=== PATIENT | male | born 1940 | race Caucasian/White ===

== ENCOUNTER 2017-03-29 08:00 | Observation (INO) | payer OTHER ==
--- NOTE | 2017-03-26 09:51 | CPEKG ---
Heart Rate: 60 RR Interval: 1000 P-R Interval: 152 QRSD Interval: 92 QT Interval: 456 QTC Interval: 456 P Astor: 24 QRS Astor: -27 T Wave Astor: 142 EKG Severity - ABNORMAL ECG - EKG Impression: SINUS RHYTHM EKG Impression: LVH WITH SECONDARY REPOLARIZATION ABNORMALITY EKG Impression: LVH IS MORE PRONOUNCED ON TODAY'S ECG COMPARED TO PRIOR Electronically Signed By: Eddie Ramirez 26-Mar-2017 16:25:33
--- NOTE | 2017-03-28 16:02 | GHP ---
[f rep st] PREOP HISTORY AND PHYSICAL DATE OF ADMISSION: 03/29/2017 ADMISSION DIAGNOSIS: Urinary retention from a flaccid bladder. HISTORY OF PRESENT ILLNESS: This is a gentleman who has had urinary retention. 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 He has had indwelling Kim catheter for urinary retention. A t the present time, he has elected to have a suprapubic catheter placed. PAST MEDICAL HISTORY: Elevated PSA, epididymal orchitis, hypertension, kidney stones. PAST SURGICAL HISTORY: Carpal tunnel, TURP, PVP. MEDICATIONS: Aspirin, Benadryl, calcium, vitamin D, fluconazole. PHYSICAL EXAMINATION: VITAL SIGNS: Stable. CHEST: Clear. HEART: Regular rate and rhythm. ABDOM EN: Normal. No organomegaly, rebound or guarding. LOWER EXTREMITIES: Normal. PLAN: He is admitted for suprapubic catheter placement. /[id number]/MODL
[~2017-03-29 08:00] MED LIST: VANCOMYCIN 1.5 GM in D5W 250 ML IV ONE; VANCOMYCIN PHARMACY TO DOSE MISC ONE
[2017-03-29] MEDS ORDERED: LIDOCAINE 1% 2 ML INJ ID PRN (08:26)
[2017-03-29] MEDS ORDERED: LR 1,000 ML IV ONE (08:26)
--- NOTE | 2017-03-29 09:25 | PDHPUP ---
History & Physical Update H&P update statement: This history and physical update is based on an assessment of the patient which was completed after admission or registration (within 24 hours), but prior to the surgery/procedure. H&P update: H&P reviewed & patient examined, no change in patient's condition since H&P completed
[2017-03-29] MEDS ORDERED: fentaNYL 100 MCG/2 ML INJ ONE (09:35)
--- NOTE | 2017-03-29 09:40 | PDANEPAE ---
ANE Past Medical History - Cardiovascular History Hx Hypertension: Yes Hx Arrhythmias: No Hx Coronary Artery / Peripheral Vascular Disease: Yes Hx CHF / Valvular Disease: No Hx Palpitations: No Cardiovascular History Comment: NO CP - Pulmonary History Hx COPD: No Hx Asthma/Reactive Airway Disease: No Hx Recent Upper Respiratory Infection: No Hx Oxygen in Use at Home: No Hx Sleep Apnea: No Sleep Apnea Screening Result - Last Documented: Positive Pulmonary History Comment: DENIES SOB W STAIRS - Neurologic History Hx Cerebrovascular Accident: No Hx Seizures: No Hx Dementia: No - Endocrine History Hx Diabetes: No - Renal History Hx Renal Disorders: Yes Renal History Comment: ENLARGED PROSTATE. BLADDER NECK CONTRACTURE. KIDNEY STONES IN KIDNEY. 1 KIDNEY SL ENLARGED- DYSFX. 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 AGE 5- NEEDLE PROC- LAST AGE 1 - GI History Hx Gastrointestinal Disorders: No - Other Health History Other Health History: BLIND - Chronic Pain History Chronic Pain: Yes (lower back) - Surgical History Prior Surgeries: turp ANE Review of Systems Review of Systems: - Exercise capacity METS (RN): 2 METS ANE Patient History - Allergies Allergies/Adverse Reactions: No Known Allergies Allergy (Verified 01/17/12 20:39) - Home Medications Home Medications: Acetaminophen [Tylenol ES 500 mg (*)] 1,000 mg PO DAILY PRN 06/25/13 [Last Taken 03/28/17 08:00] Acetamn/Diphenhydramine 500/25 [Tylenol PM (*)] 2 each PO HS 06/25/13 [Last Taken 03/28/17 20:00] Aspirin [Aspirin 325 mg (*)] 325 mg PO DAILY 06/25/13 [Last Taken 03/22/17] Lisinopril [Zestril 20 mg (*)] 20 mg PO DAILY 06/25/13 [Last Taken 03/29/17 06: 00] Lovastatin 10 mg PO DAILY 03/16/17 [Last Taken 03/27/17] Multivitamins [Multivitamin (*)] 1 each PO DAILY 03/16/17 [Last Taken 03/24/17] - NPO status NPO Since - Liquids (Date): 03/28/17 NPO Since - Liquids (Time): 00:00 NPO Since - Solids (Date): 03/28/17 NPO Since - Solids (Time): 19:00 - Smoking Hx Smoking Status: Never smoked - Family Anes Hx Family Hx Anesthesia Complications: NONE ANE Labs/Vital Signs - Vital Signs Blood Pressure: 121/72 Heart Rate: 58 Respiratory Rate: 16 O2 Sat (%): 94 Height: 182.88 cm Weight: 108.862 kg ANE Physical Exam - Airway Neck exam: decreased ROM, short neck Mallampati Score: Class 2 Mouth exam: poor dentition - Pulmonary Pulmonary: no respiratory distress, no rales or rhonchi, reduced air movement - Cardiovascular Cardiovascular: regular rate and rhythym, no murmur, rub, or gallop - ASA Status ASA Status: III ANE Anesthesia Plan Anesthesia Plan: general endotracheal anesthesia
[2017-03-29] MEDS ORDERED: LR 500 ML IV PRN (09:55)
[2017-03-29] MEDS ORDERED: DEXAMETHASONE 4 MG/ML VIAL IVP PRN (09:55)
[2017-03-29] MEDS ORDERED: fentaNYL 100 MCG/2 ML INJ IVP PRN (09:55)
[2017-03-29] MEDS ORDERED: NALOXONE HCL 0.4 MG/ML INJ IVP PRN (09:55)
[2017-03-29] MEDS ORDERED: ONDANSETRON 4 MG/2 ML VIAL IVP PRN ×2 (09:55→10:39)
[2017-03-29] MEDS ORDERED: ALBUTEROL 3 ML DEYVIAL IH PRN (09:55)
[2017-03-29] MEDS ORDERED: epHEDrine SULFATE 10 MG/ML SYR ONE ×2 (09:57→10:19)
[2017-03-29] MEDS ORDERED: LIDOCAINE 2% 5 ML SDV ONE (09:57)
[2017-03-29] MEDS ORDERED: ROCURONIUM 50 MG/5 ML VIAL ONE (09:57)
[2017-03-29] MEDS ORDERED: SUGAMMADEX SODIUM 200 MG/2 ML VIAL IVP ONE (09:57)
[2017-03-29] MEDS ORDERED: ONDANSETRON 4 MG/2 ML VIAL ONE (09:57)
[2017-03-29] MEDS ORDERED: oxyCODONE IR 5 MG TAB PO PRN (10:39)
[2017-03-29] MEDS ORDERED: ACETAMINOPHEN 325 MG TAB PO PRN (10:39)
[2017-03-29] MEDS ORDERED: ZOLPIDEM TARTRATE 5 MG TAB PO PRN (10:39)
[2017-03-29] MEDS ORDERED: ONDANSETRON DISINTEGRATING 4 MG TAB PO PRN (10:39)
[2017-03-29] MEDS ORDERED: NS 1,000 ML IV SCH (10:45)
--- NOTE | 2017-03-29 10:54 | POSTANESTH ---
Post Anesthetic Evaluation Cardiovascular Status: Normal, Stable Respiratory Status: Normal, Stable Level of Consciousness/Mental Status: Can Participate in Eval Pain Control: Adequate, Prn Tx Ordered Nausea/Vomiting Control: Adequate, Prn Tx Ordered Complications Possibly Related to Anesthesia: None Noted
--- NOTE | 2017-03-29 12:01 | GOP ---
[f rep st] OPERATIVE REPORT DATE OF OPERATION: 03/29/2017 SURGEON: Layton Farah MD PREOPERATIVE DIAGNOSIS: Urinary retention. POSTOPERATIVE DIAGNOSIS: Urinary retention and bladder calculi. PROCEDURE PERFORMED: Cystolitholapaxy of bladder stones and placement of suprapubic cystotomy cathet er. FINDINGS: DESCRIPTION OF PROCEDURE: The patient underwent general anesthesia. Prepped and draped in normal st erile fashion in dorsal lithotomy position. After appropriate time-out, he was prepped and draped in normal sterile fashion and then the cystoscopy revealed the urethra patent with no significant scarr ing. He had bladder stones that were evacuated with a grasper and an [employer] evacuator and then visual ization of bladder revealed no tumors or diverticula. Then, at that point, I filled his bladder so that it was well above his symphysis pubis palpably and then I was able to past the T-SPEC T14 transurethral suprapubic Endo-cystotomy device into the [facility] r and connected it so that the capture housing for the blade was through the abdomen into the device and then removed the scalpel blade, advanced the cable, and then attached the 18-Icelandic catheter to t he device. Brought it out through the urethra and then at that point followed the catheter back in t he bladder endoscopically. Filled the catheter balloon to 10 mL and then confirmed it was positioned appropriately and then it was secured in place with a 3-0 silk suture and irrigated and drained well . The patient tolerated the procedure well. He will be observed overnight postoperatively and I will d iscuss the findings with his family. /[id number]/MODL
[2017-03-29] MEDS ORDERED: diphenhydrAMINE 25 MG CAP PO PRN (14:34)
[2017-03-30 05:56] VITALS: RESP 16
--- NOTE | 2017-03-30 09:11 | GDS ---
[f rep st] DISCHARGE SUMMARY PREOP AND POSTOP DIAGNOSIS: Urinary retention preoperatively. Postoperatively was urinary retention with bladder calculi. HOSPITAL COURSE: The patient underwent a cystolitholapaxy bladder stone, placement of suprapubic cat heter. He underwent the procedure without difficulty. He is being discharged home in good condition with SP tube in place. He is to follow up in our office in 1 month. /[id number]/MODL
[2017-03-30] MEDS ORDERED: DOCUSATE SODIUM 100 MG CAP PO PRN (10:40)
--- NOTE | 2017-03-30 10:58 | ASMTCMCOM ---
CM Note CM Note Notes: Pt to DC today. PT/OT recommending home care. Pt has had [facility] in past and would like to use again. They were alerted. Referral faxed. SOC tomorrow 03/31. Date Signed: 03/30/2017 10:57 AM Electronically Signed By:Elly Chowdhury LCSW
[2017-03-30 11:16] VITALS: BP 129/64; PULSE 66; TEMP 98; O2SAT 92
--- NOTE | 2017-03-30 12:17 | PDIAF ---
- Diagnosis Code Status: Full Code - Medication Management Discharge Medications: Medications to Continue on Transfer Acetaminophen [Tylenol ES 500 mg (*)] 1,000 mg PO DAILY PRN 06/25/13 [Last Taken 03/28/17 08:00] Acetamn/Diphenhydramine 500/25 [Tylenol PM (*)] 2 each PO HS 06/25/13 [Last Taken 03/28/17 20:00] Aspirin [Aspirin 325 mg (*)] 325 mg PO DAILY 06/25/13 [Last Taken 03/22/17] Lisinopril [Zestril 20 mg (*)] 20 mg PO DAILY 06/25/13 [Last Taken 03/29/17 06: 00] Lovastatin 10 mg PO DAILY 03/16/17 [Last Taken 03/27/17] Multivitamins [Multivitamin (*)] 1 each PO DAILY 03/16/17 [Last Taken 03/24/17] Discharge Medications: Refer to the Discharge Home Medication list for PRN reason. - Orders Services needed: Physical Therapy, Occupational Therapy Diet Texture: Regular Texture Diet - Follow Up Care Current Providers and Referrals: Winston Silverio MD [Primary Care Provider] - Layton Farah MD [Medical Doctor] -
--- NOTE | 2017-03-30 14:47 | ASMTCMCOM ---
CM Note CM Note Notes: Pt will be staying with dtr for one night at [place]. Asked [facility] to call dtr Mana at [phone] so that she can bring back home for appt. Pt's [address] address is [address] in [place]. Pt is blind and dtr says PT/OT is for balance and gait instability. Otherwise he lives alone but knows how to get around. Dtr is an RN and can help with his catheter. Date Signed: 03/30/2017 02:46 PM Electronically Signed By:Elly Chowdhury LCSW
--- NOTE | 2017-03-30 14:50 | ASDISCHSUM ---
Discharge Information Plan Status:Home with Home Health Medically Cleared to Leave: Discharge Date:03/30/2017 12:15 PM CM D/C Disposition:Home Health Service ADT D/C Disposition:Home Health Service Projected Discharge Date:03/30/2017 11:00 AM Transportation at D/C: Discharge Delay Reason: Follow-Up Date:03/30/2017 11:00 AM Discharge Slot: Final Diagnosis: Placement Information Referral Type:*Home Health Care Services Referral ID:[id number] Provider Name:[facility] Address 1:[address] [place] [address] Address 2: City:[place] Selection Factors: State:[place] Patient Contact Information Contact Name:JACKIE Relationship:Daughter Address: City: [facility] Phone: State/Zip Code:[place] Email: Financial Information Financial Class:Medicare Advantage Plans Primary Plan Desc:MIGNON [employer]ARCIA PPO MEDICARE Primary Plan Number:[id number] Secondary Plan Desc: Secondary Plan Number: Assessment Information [facility] CM Progress Note CM Note CM Note Notes: Pt to DC today. PT/OT recommending home care. Pt has had [facility] in past and would like to use again. They were alerted. Referral faxed. SOC tomorrow 03/31. Date Signed: 03/30/2017 10:57 AM Electronically Signed By:Elly Chowdhury LCSW [facility] CM Progress Note CM Note CM Note Notes: Pt will be staying with dtr for one night at [place]. Asked [facility] to call dtdania Adair at [phone] so that she can bring back home for appt. Pt's street address is [address] in [place]. Pt is blind and dtr says PT/OT is for balance and gait instability. Otherwise he lives alone but knows how to get around. Dtr is an RN and can help with his catheter. Date Signed: 03/30/2017 02:46 PM Electronically Signed By:Elly Chowdhury LCSW Intervention Information Intervention Type:*BRAD-Signed Date of Service:03/29/2017 03:16 PM Patient Type:Observation Staff Member:Azul Hoff Hours: Discipline: Severity: Comment:
== END 2017-03-30 12:15 | disposition home health service (06) ==
LOC: F1N 08:00
PROVIDERS: ADMIT Specialist; ATTEND Specialist
DX: R33.9 Retention of urine, unspecified (principal); N21.0 Calculus in bladder; Z87.442 Personal history of urinary calculi
CPT/HCPCS: 51045; 52310; 93005; 97116; 97161; 97165; 97530; 97535; C2627; G0378; J2405; J3010; J3370; 82365-90

== ENCOUNTER 2018-05-24 12:15 | Inpatient (IN) | payer OTHER ==
[2018-05-24 12:35] LABS: PLATELET COUNT 230 10^3/uL (150-400)
[2018-05-24] MEDS ORDERED: LACTATED RINGERS IV ONE (13:08)
--- NOTE | 2018-05-24 13:14 | EDPHY ---
H & P Stated Complaint: ? uti Time Seen by Provider: 05/24/18 13:01 HPI/ROS: CHIEF COMPLAINT: Generalized weakness, fall, confusion HISTORY OF PRESENT ILLNESS: Patient is a 77-year-old man with history of hypertension and BPH and spinal stenosis with neurogenic bladder and suprapubic catheter. Family reports that he has had diarrhea for the last 2 weeks but it got better yesterday after Imodium. He felt increasingly fatigued last night and fell down. He called fire department who helped him back up. He had a bruise to his elbow but no other injuries. He is not on blood thinners. He denies head injury or neck injury. He then went to bed and slid out of bed onto the ground. His family reports that he did not want to call the fire department so he laid on the ground all night and called them this morning. They brought him here. Family reports that he has had similar episodes in the past that have been the result of urinary tract infections. His daughter states that his urine smells foul compared to normal. He has not been on antibiotics in the last several months. He has not been hospitalized for about 3 years. 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 Severity: Moderate Modifying factors: None REVIEW OF SYSTEMS: Constitutional: See HPI, no fevers EENTM: denies: blurred vision, double vision, nose congestion Respiratory: denies: cough, shortness of breath Cardiac: denies: chest pain, irregular heart rate, lightheadedness, palpitations Gastrointestinal/Abdominal: denies: abdominal pain, diarrhea, nausea, vomiting, blood streaked stools Genitourinary: See HPI Musculoskeletal: denies: joint pain, muscle pain Skin: denies: lesions, rash, jaundice, bruising Neurological: denies: headache, numbness, paresthesia, tingling, dizziness, weakness Hematologic/Lymphatic: denies: blood clots, easy bleeding, easy bruising Immunologic/allergic: denies: HIV/AIDS, transplant 10 systems reviewed and negative except as noted EXAM: GENERAL: Ofwy-ag-jabzkmi, blind, answers most questions appropriately HEAD: Atraumatic, normocephalic. EYES: Blind ENT: TMs normal, nares patent, oropharynx clear without exudates. Moist mucous membranes. NECK: Normal range of motion, supple without lymphadenopathy or JVD. LUNGS: Breath sounds clear to auscultation bilaterally and equal. No wheezes rales or rhonchi. HEART: Regular rate and rhythm without murmurs, rubs or gallops. ABDOMEN: Suprapubic catheter in place, no leaking or bleeding. Soft, nontender , normoactive bowel sounds. No guarding, no rebound. No masses appreciated. BACK: No CVA tenderness, no spinal tenderness, step-offs or deformities EXTREMITIES: Normal range of motion, no pitting or edema. No clubbing or cyanosis. NEUROLOGICAL: Cranial nerves II through XII grossly intact. Normal speech. 5/ 5 strength, normal movement in all extremities, normal sensation, normal reflexes PSYCH: Normal mood, normal affect. SKIN: Warm, dry, normal turgor, no visible rashes or lesions. Source: Patient, Family Exam Limitations: No limitations, Clinical condition - Personal History Tetanus Vaccine Date: < 10 years - Medical/Surgical History Hx Asthma: No Hx Chronic Respiratory Disease: No Hx Diabetes: No Hx Cardiac Disease: No Hx Renal Disease: Yes Hx Cirrhosis: No Hx Alcoholism: No Hx HIV/AIDS: No Hx Splenectomy or Spleen Trauma: No Other PMH: BPH, HTN, High cholesterol, CAD, Photovaporization of the prostate, Completely blind. - Social History Smoking Status: Never smoked Alcohol Use: Sober Drug Use: None Constitutional: Initial Vital Signs Temperature (C) 36.4 C 05/24/18 12:23 Heart Rate 71 05/24/18 12:23 Respiratory Rate 18 05/24/18 12:23 Blood Pressure 103/60 05/24/18 12:23 O2 Sat (%) 97 05/24/18 12:23 O2 Delivery Mode Room Air Allergies/Adverse Reactions: No Known Allergies Allergy (Verified 01/17/12 20:39) Home Medications: Medication Instructions Recorded Lisinopril [Zestril 20 mg (*)] 20 mg PO DAILY 06/25/13 Ascorbic Acid [Vitamin C 500 mg 500 mg PO DAILY 05/24/18 (*)] Calcium Carbonate [Oyster Shell 500 mg PO DAILY 05/24/18 Calcium 500 mg (*)] Fluticasone Nasal [Flonase Nasal 1 sprays NASAL DAILY 05/24/18 [place] (RX)] Lovastatin 20 mg PO DAILY 05/24/18 MIRTAZAPINE [Remeron 7.5 mg] 7.5 mg PO DAILY 05/24/18 Magnesium Oxide [Magnesium Oxide 400 mg PO DAILY 05/24/18 400 mg (*)] Medical Decision Making - Diagnostics EKG Interpretation: An EKG obtained and was read and documented in trace view. Please see trace view for full reading and report. Sinus rhythm, no acute ischemic changes, T- wave inversions laterally similar to previous ED Course/Re-evaluation: 1:25 p.m. I spoke with hospitalist service who will accept for Dr. Dee. CKs pending. The patient is receiving hydration and antibiotics. He is septic but is does not qualify for severe sepsis. Differential Diagnosis: Partial list of the Differential diagnosis considered include but were not limited to; electrolyte abnormality, urinary tract infection, sepsis, rhabdo and although unlikely based on the history and physical exam, I also considered fracture, intracranial injury. - Data Points Laboratory Results: Laboratory Results 05/24/18 12:07 05/24/18 12:07 05/24/18 05/24/18 05/24/18 13:00 13:00 12:30 WBC RBC Hgb Hct MCV MCH MCHC RDW Plt Count MPV Neut % (Auto) Lymph % (Auto) [place] % (Auto) Eos % (Auto) Baso % (Auto) Nucleat RBC Rel Count Absolute Neuts (auto) Absolute Lymphs (auto) Absolute Monos (auto) Absolute Eos (auto) Absolute Basos (auto) Absolute Nucleated RBC Immature Gran % Seg Neutrophils % Band Neutrophils % Lymphocytes % Monocytes % Eosinophils % Basophils % Metamyelocytes % Myelocytes % Promyelocytes % Blast Cells % Immature Gran # Absolute Seg Neuts Absolute Band Neuts Absolute Lymphocytes Absolute Monocytes Absolute Eosinophils Absolute Basophils Absolute Metamyelocyte Absolute Myelocytes Absolute Promyelocytes Absolute Plasma Cells Nucleated RBCs RBC/WBC/PLT Morphology Absolute Blast Cells Plasma Cells % Platelet Estimate PT 14.1 SEC SEC (12.0-15.0) INR 1.07 (0.83-1.16) APTT 27.9 SEC SEC (23.0-38.0) VBG Lactic Acid Sodium Potassium Chloride Carbon Dioxide Anion Gap BUN Creatinine Estimated GFR Glucose Calcium Total Bilirubin 1.6 mg/dL H mg/dL (0.1-1.4) Creatine Kinase 36665 IU/L H IU/L (0-224) CK-MB (CK-2) Fraction 51.40 ng/mL H ng/mL (0.00-4.55) CK-MB (CK-2) % 0.5 % % (0.0-4.0) Creatine Kinase Interp NEGATIVE (NEGATIVE) Urine Color DARYL Urine Appearance MODERATELY TURBID Urine pH 7.0 (5.0-7.5) Ur Specific [place] 1.024 (1.002-1.030) Urine Protein 2+ H (NEGATIVE) Urine Ketones TRACE H (NEGATIVE) Urine Blood 2+ H (NEGATIVE) Urine Nitrate NEGATIVE (NEGATIVE) Urine Bilirubin NEGATIVE (NEGATIVE) Urine Urobilinogen 4.0 EU H EU (0.2-1.0) Ur Leukocyte Esterase 3+ H (NEGATIVE) Urine RBC 50-182 /hpf H /hpf (0-3) Urine WBC 50-182 /hpf H /hpf (0-3) Ur Epithelial Cells NONE SEEN /lpf /lpf (NONE-1+) Urine Bacteria 4+ /hpf H /hpf (NONE SEEN) Hyaline Casts 25-50 /lpf H /lpf (0-1) Urine Mucus TRACE /lpf /lpf (NONE-1+) Urine Glucose NEGATIVE (NEGATIVE) 05/24/18 05/24/18 05/24/18 12:07 12:07 12:07 WBC 18.02 10^3/uL H 10^3/uL (3.80-9.50) RBC 4.81 10^6/uL 10^6/uL (4.40-6.38) Hgb 15.8 g/dL g/dL (13.7-17.5) Hct 46.3 % % (40.0-51.0) MCV 96.3 fL fL (81.5-99.8) MCH 32.8 pg pg (27.9-34.1) MCHC 34.1 g/dL g/dL (32.4-36.7) RDW 13.5 % % (11.5-15.2) Plt Count 230 10^3/uL 10^3/uL (150-400) MPV 10.3 fL fL (8.7-11.7) Neut % (Auto) Not Reported Lymph % (Auto) Not Reported [place] % (Auto) Not Reported Eos % (Auto) Not Reported Baso % (Auto) Not Reported Nucleat RBC Rel Count Not Reported Absolute Neuts (auto) Not Reported Absolute Lymphs (auto) Not Reported Absolute Monos (auto) Not Reported Absolute Eos (auto) Not Reported Absolute Basos (auto) Not Reported Absolute Nucleated RBC Not Reported Immature Gran % Not Reported Seg Neutrophils % 92.0 % % Band Neutrophils % 0.0 % % Lymphocytes % 5.0 % % Monocytes % 3.0 % % Eosinophils % 0.0 % % Basophils % 0.0 % % Metamyelocytes % 0.0 % % Myelocytes % 0.0 % % Promyelocytes % 0.0 % % Blast Cells % 0.0 % % Immature Gran # Not Reported Absolute Seg Neuts 16.58 10^3/uL H 10^3/uL (1.70-6.50) Absolute Band Neuts 0.00 10^3/uL 10^3/uL (0.00-0.70) Absolute Lymphocytes 0.90 10^3/uL L 10^3/uL (1.00-3.00) Absolute Monocytes 0.54 10^3/uL 10^3/uL (0.30-0.80) Absolute Eosinophils 0.00 10^3/uL L 10^3/uL (0.03-0.40) Absolute Basophils 0.00 10^3/uL L 10^3/uL (0.02-0.10) Absolute Metamyelocyte 0.00 10^3/mL 10^3/mL (0.00-0.00) Absolute Myelocytes 0.00 10^3/mL 10^3/mL (0.00-0.00) Absolute Promyelocytes 0.00 10^3/uL 10^3/uL (0.00-0.00) Absolute Plasma Cells 0.00 10^3/uL 10^3/uL (0.00-0.00) Nucleated RBCs 0 /100 WBC /100 WBC (0-0) RBC/WBC/PLT Morphology NORMAL (NORMAL) Absolute Blast Cells 0.00 10^3/uL 10^3/uL (0.00-0.00) Plasma Cells % 0.0 % % Platelet Estimate ADEQUATE (ADEQ) PT INR APTT VBG Lactic Acid 1.9 mmol/L mmol/L (0.7-2.1) Sodium 138 mEq/L mEq/L (135-145) Potassium 4.1 mEq/L mEq/L (3.5-5.2) Chloride 107 mEq/L mEq/L (97-110) Carbon Dioxide 20 mEq/l L mEq/l (22-31) Anion Gap 11 mEq/L mEq/L (6-14) BUN 46 mg/dL H mg/dL (7-23) Creatinine 1.6 mg/dL H mg/dL (0.7-1.3) Estimated GFR 42 Glucose 104 mg/dL H mg/dL (70-100) Calcium 10.0 mg/dL mg/dL (8.5-10.4) Total Bilirubin Creatine Kinase CK-MB (CK-2) Fraction CK-MB (CK-2) % Creatine Kinase Interp Urine Color Urine Appearance Urine pH Ur Specific [place] Urine Protein Urine Ketones Urine Blood Urine Nitrate Urine Bilirubin Urine Urobilinogen Ur Leukocyte Esterase Urine RBC Urine WBC Ur Epithelial Cells Urine Bacteria Hyaline Casts Urine Mucus Urine Glucose Medications Given: Sodium Chloride (Ns) 1,000 mls @ 100 mls/hr IV CONT DEENA Stop: 05/25/18 00:44 Last Admin: 05/24/18 19:52 Dose: 1,000 mls Discontinued Medications Lactated Ringer's (Lr) 3,300 mls @ 550 mls/hr 30 ml/kg infuse over 6 hr (3300 ml) IV EDNOW ONE PRN Reason: Protocol Stop: 05/24/18 19:07 Last Admin: 05/24/18 13:10 Dose: 3,300 mls Ceftriaxone Sodium/Dextrose (Rocephin 1 Gm (Premix)) 50 mls @ 100 mls/hr IV EDNOW ONE PRN Reason: Protocol Stop: 05/24/18 13:39 Last Admin: 05/24/18 14:44 Dose: 50 mls Departure - Departure Disposition: [facility] Inpatient Acute Clinical Impression: Weakness Urinary tract infection Qualifiers: Urinary tract infection type: acute cystitis Hematuria presence: without hematuria Qualified Code(s): N30.00 - Acute cystitis without hematuria Sepsis Qualifiers: Sepsis type: sepsis due to unspecified organism Qualified Code(s): A41.9 - Sepsis, unspecified organism Condition: Fair
[2018-05-24 13:54] LABS: INR 1.07 (0.83-1.16); PROTIME(PATIENT) 14.1 SEC (12.0-15.0)
[2018-05-24] MEDS ORDERED: ONDANSETRON DISINTEGRATING 4 MG TAB PO PRN (14:45)
[2018-05-24] MEDS ORDERED: ONDANSETRON 4 MG/2 ML VIAL IVP PRN (14:45)
[2018-05-24] MEDS ORDERED: NS 1,000 ML IV SCH (14:45)
--- NOTE | 2018-05-24 14:52 | PDGENHP ---
History and Physical - Chief Complaint Weakness, confusion - History of Present Illness 77 y/o male presents to the ED after sustaining two mechanical falls yesterday. He fell once in his garage and used his lifealert necklace for EMS who placed him inside his home. He denies hitting his head, headache, or LOC. The second time he fell was when he slipped out of bed at night but didn't want to call for help. This morning, a tenant that is living below him heard him moaning and called for help. 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 He told them he has had diarrhea for the last 2 weeks which cleared up yesterday after receiving Imodium. The daughters also mentioned he has been become progressively weaker in the last 2 years and is riddled with back pain and stenosis which worsen his ambulation. One daughter noted because he lives alone and is blind, she isn't sure how clean his process is when attaching the suprapubic catheter, especially during his bouts of diarrhea. She noticed his urine dark and foul- smelling which was indicated a possible UTI which he experienced 2-3 months ago with similar symptoms. The pt is being admitted for further diagnostic work-up and management of possible UTI. Past Medical/Surgical History 1. Neurogenic bladder w/ suprapubic catheter 2. Hyperlipidemia 3. Legally blind d/t detached retinas 4. Hypertension 5. GERD 6. CKD Stage III 7. Spinal stenosis of lumbar region 8. Insomnia 9. Weakness 10. Coronary artery disease Social 1. Lives alone in [place], has 2 daughters nearby 2. Denies tobacco or alcohol use. No illicit drug use. Vital Signs 103/60 71 HR 18 Respirations 97% RA 36.4c History Information - Allergies/Home Medication List Allergies/Adverse Reactions: No Known Allergies Allergy (Verified 01/17/12 20:39) Home Medications: Lisinopril [Zestril 20 mg (*)] 20 mg PO DAILY 06/25/13 [Last Taken 03/29/17 06: 00] Ascorbic Acid [Vitamin C 500 mg (*)] 500 mg PO DAILY 05/24/18 [Last Taken Unknown] Calcium Carbonate [Oyster Shell Calcium 500 mg (*)] 500 mg PO DAILY 05/24/18 [ Last Taken Unknown] Fluticasone Nasal [Flonase Nasal [place] (RX)] 1 sprays NASAL DAILY 05/24/18 [ Last Taken Unknown] Lovastatin 20 mg PO DAILY 05/24/18 [Last Taken Unknown] MIRTAZAPINE [Remeron 7.5 mg] 7.5 mg PO DAILY 05/24/18 [Last Taken Unknown] Magnesium Oxide [Magnesium Oxide 400 mg (*)] 400 mg PO DAILY 05/24/18 [Last Taken Unknown] I have personally reviewed and updated: family history, medical history, social history, surgical history Past Medical History: See HPI List - Surgical History Additional surgical history: See HPI List - Family History Positive for: non-pertinent - Social History Smoking Status: Never smoked Alcohol Use: None Drug Use: None Review of Systems Review of Systems: ROS: 10pt was reviewed & negative except for what was stated in HPI & below Constitutional: Reports: recent injury, weakness EENMT: Reports: blurred vision (Chronic) Cardiac: Reports: no symptoms Respiratory: Reports: no symptoms Gastrointestinal: Reports: abdominal pain (Diffuse), diarrhea Genitourinary: Reports: incontinence Muscolosketal: Reports: back pain, neck pain Skin: Reports: dryness Neurological: Reports: numbness (BLE) Hematologic/Lymphatic: Reports: no symptoms Immunologic/Allergy: Reports: no symptoms Physical Exam Physical Exam: Lab data reviewed WBC: 18.02 Lactic acid: 1.9 Creatinine/BUN: 1.6/46 Total Bilirubin: 1.6 UA: see results CK: [address] Temp Pulse Resp BP Pulse Ox 36.8 C 62 16 108/69 97 05/24/18 14:00 05/24/18 14:00 05/24/18 14:00 05/24/18 14:00 05/24/18 14:00 Constitutional: no apparent distress, chronically ill appearing Eyes: anicteric sclera, EOMI Ears, Nose, Mouth, Throat: ears appear normal, poor dentition, dry mucous membranes, hard of hearing Cardiovascular: regular rate and rhythym, no murmur, rub, or gallop, No edema Peripheral Pulses: 1+: dorsalis-pedis (R) (Radial 2+), dorsalis-pedis (L) ( Radial 2+) Respiratory: reduced air movement (Throughout lung hernández) Gastrointestinal: normoactive bowel sounds, no palpable masses, tenderness, other (Umbilical hernia) Genitourinary: other (Suprapubic catheter) Skin: warm, normal color, no rashes or abrasions, no fluctuance, no induration, No mottled Musculoskeletal: generalized weakness Neurologic: AAOx3, sensation intact bilaterally, weakness, numbness, CN II-XII Intact Psychiatric: interacting appropriately, not anxious, not encephalopathic, thought process linear Lymph, Heme, Immunologic: no cervical LAD, no supraclavicular LAD Lab Data & Imaging Review 05/24/18 12:07 05/24/18 12:07 WBC 18.02 10^3/uL (3.80-9.50) H 05/24/18 12:07 RBC 4.81 10^6/uL (4.40-6.38) 05/24/18 12:07 Hgb 15.8 g/dL (13.7-17.5) 05/24/18 12:07 Hct 46.3 % (40.0-51.0) 05/24/18 12:07 MCV 96.3 fL (81.5-99.8) 05/24/18 12:07 MCH 32.8 pg (27.9-34.1) 05/24/18 12:07 MCHC 34.1 g/dL (32.4-36.7) 05/24/18 12:07 RDW 13.5 % (11.5-15.2) 05/24/18 12:07 Plt Count 230 10^3/uL (150-400) 05/24/18 12:07 MPV 10.3 fL (8.7-11.7) 05/24/18 12:07 Neut % (Auto) Not Reported 05/24/18 12:07 Lymph % (Auto) Not Reported 05/24/18 12:07 [place] % (Auto) Not Reported 05/24/18 12:07 Eos % (Auto) Not Reported 05/24/18 12:07 Baso % (Auto) Not Reported 05/24/18 12:07 Nucleat RBC Rel Count Not Reported 05/24/18 12:07 Absolute Neuts (auto) Not Reported 05/24/18 12:07 Absolute Lymphs (auto) Not Reported 05/24/18 12:07 Absolute Monos (auto) Not Reported 05/24/18 12:07 Absolute Eos (auto) Not Reported 05/24/18 12:07 Absolute Basos (auto) Not Reported 05/24/18 12:07 Absolute Nucleated RBC Not Reported 05/24/18 12:07 Immature Gran % Not Reported 05/24/18 12:07 Seg Neutrophils % 92.0 % 05/24/18 12:07 Band Neutrophils % 0.0 % 05/24/18 12:07 Lymphocytes % 5.0 % 05/24/18 12:07 Monocytes % 3.0 % 05/24/18 12:07 Eosinophils % 0.0 % 05/24/18 12:07 Basophils % 0.0 % 05/24/18 12:07 Metamyelocytes % 0.0 % 05/24/18 12:07 Myelocytes % 0.0 % 05/24/18 12:07 Promyelocytes % 0.0 % 05/24/18 12:07 Blast Cells % 0.0 % 05/24/18 12:07 Immature Gran # Not Reported 05/24/18 12:07 Absolute Seg Neuts 16.58 10^3/uL (1.70-6.50) H 05/24/18 12:07 Absolute Band Neuts 0.00 10^3/uL (0.00-0.70) 05/24/18 12:07 Absolute Lymphocytes 0.90 10^3/uL (1.00-3.00) L 05/24/18 12:07 Absolute Monocytes 0.54 10^3/uL (0.30-0.80) 05/24/18 12:07 Absolute Eosinophils 0.00 10^3/uL (0.03-0.40) L 05/24/18 12:07 Absolute Basophils 0.00 10^3/uL (0.02-0.10) L 05/24/18 12:07 Absolute Metamyelocyte 0.00 10^3/mL (0.00-0.00) 05/24/18 12:07 Absolute Myelocytes 0.00 10^3/mL (0.00-0.00) 05/24/18 12:07 Absolute Promyelocytes 0.00 10^3/uL (0.00-0.00) 05/24/18 12:07 Absolute Plasma Cells 0.00 10^3/uL (0.00-0.00) 05/24/18 12:07 Nucleated RBCs 0 /100 WBC (0-0) 05/24/18 12:07 RBC/WBC/PLT Morphology NORMAL (NORMAL) 05/24/18 12:07 Absolute Blast Cells 0.00 10^3/uL (0.00-0.00) 05/24/18 12:07 Plasma Cells % 0.0 % 05/24/18 12:07 Platelet Estimate ADEQUATE (ADEQ) 05/24/18 12:07 PT 14.1 SEC (12.0-15.0) 05/24/18 13:00 INR 1.07 (0.83-1.16) 05/24/18 13:00 APTT 27.9 SEC (23.0-38.0) 05/24/18 13:00 VBG Lactic Acid 1.9 mmol/L (0.7-2.1) 05/24/18 12:07 Sodium 138 mEq/L (135-145) 05/24/18 12:07 Potassium 4.1 mEq/L (3.5-5.2) 05/24/18 12:07 Chloride 107 mEq/L (97-110) 05/24/18 12:07 Carbon Dioxide 20 mEq/l (22-31) L 05/24/18 12:07 Anion Gap 11 mEq/L (6-14) 05/24/18 12:07 BUN 46 mg/dL (7-23) H 05/24/18 12:07 Creatinine 1.6 mg/dL (0.7-1.3) H 05/24/18 12:07 Estimated GFR 42 05/24/18 12:07 Glucose 104 mg/dL (70-100) H 05/24/18 12:07 Calcium 10.0 mg/dL (8.5-10.4) 05/24/18 12:07 Total Bilirubin 1.6 mg/dL (0.1-1.4) H 05/24/18 13:00 Urine Color DARYL 05/24/18 12:30 Urine Appearance MODERATELY TURBID 05/24/18 12:30 Urine pH 7.0 (5.0-7.5) 05/24/18 12:30 Ur Specific [place] 1.024 (1.002-1.030) 05/24/18 12:30 Urine Protein 2+ (NEGATIVE) H 05/24/18 12:30 Urine Ketones TRACE (NEGATIVE) H 05/24/18 12:30 Urine Blood 2+ (NEGATIVE) H 05/24/18 12:30 Urine Nitrate NEGATIVE (NEGATIVE) 05/24/18 12:30 Urine Bilirubin NEGATIVE (NEGATIVE) 05/24/18 12:30 Urine Urobilinogen 4.0 EU (0.2-1.0) H 05/24/18 12:30 Ur Leukocyte Esterase 3+ (NEGATIVE) H 05/24/18 12:30 Urine RBC 50-182 /hpf (0-3) H 05/24/18 12:30 Urine WBC 50-182 /hpf (0-3) H 05/24/18 12:30 Ur Epithelial Cells NONE SEEN /lpf (NONE-1+) 05/24/18 12:30 Urine Bacteria 4+ /hpf (NONE SEEN) H 05/24/18 12:30 Hyaline Casts 25-50 /lpf (0-1) H 05/24/18 12:30 Urine Mucus TRACE /lpf (NONE-1+) 05/24/18 12:30 Urine Glucose NEGATIVE (NEGATIVE) 05/24/18 12:30 Assessment & Plan Plan: 1. Metabolic encephalopathy: he was interacting and answering questions appropriately with me. However, he does have leukocytosis, increased CK, and increased creatinine/BUN, low CO2. We will continue to monitor and treat his rhabdomyolysis and UTI for reversal of said encephalopathy 2. Acute sepsis secondary to urinary tract infection: treat with Rocephin and IVF. Continue to monitor vitals. Check CBC/BMP tomorrow. Blood culture pending. Urine culture pending. 3. Chronic Generalized weakness: he will work with PT/OT. 4. Rhabdomyolysis: treat with IVF. Check CK tomorrow. 5. Neck pain: he denies headaches or acute vision changes, however he does report neck pain when lifting his head and when it is palpated. We will check a head/cervical CT w/o contrast d/t his recent falls. Pain will be controlled with Tylenol PRN. 6. Diarrhea: apparently it has resolved. GI pathogen PCR pending. Diet: Regular Code: Full VTE ppx: SCDs, Heparin subq Dispo: Admit to obs
--- NOTE | 2018-05-24 15:08 | CPEKG ---
Test Reason : OPEN Blood Pressure : / mmHG Vent. Rate : 069 BPM Atrial Rate : 069 BPM P-R Int : 161 ms QRS Dur : 092 ms QT Int : 488 ms P-R-T Axes : 045 -15 132 degrees QTc Int : 523 ms Sinus rhythm Borderline left axis deviation Abnormal T, consider ischemia, lateral leads Prolonged QT interval Confirmed by Bright Hardin ([id number]) on 05/24/2018 3:07:48 PM Referred By: Confirmed By:Bright Hardin
[2018-05-24 15:10] LABS: CREATINE KINASE 11389 IU/L (0-224)
--- NOTE | 2018-05-24 18:04 | HOSPPROG ---
Hospitalist Progress Note Assessment/Plan: Pt seen in conjunction with our Nurse Practitioner Mare Brunson. Please see her H& P. Pt is a 77 yo male admitted with dehydration, UTI, diarrhea, SUSY, and Rhabdo #Metabolic Encephalopathy: appears resolved #Dehydration: Still getting LR. Order is in to run over 6 hours. Will likely need more IVF which has been ordered. No hx of CHF. #SUSY, prerenal #UTI: Rocephin #Suprapubic Catheter, chronic. due to prostate etiology. pending clinical response and w/u/cultures, consider replacement. #Rhabdomyolysis #Diarrhea: appears resolved. He was having diarrhea for several days prior to hospitalization. Appears resolved as of yesterday. No recent abx use #Generalized Weakness: Etiology is multifactorial. PT/OT to see. Currently not safe for d/c. May need SNF #Neck Pain, reported. He does not have any meningeal signs on my examination. Cognition improving with IVF and abx. Will hold LP. CT Neck ordered per our POST HOLE DIGGER DVT proph Agree with our POST HOLE DIGGER's A/P per her H&P Plan: IV abx IVF PT/OT Subjective: feeling better. no GRANADOS or neck pain currently. Afebrile. BP ok Objective: Vital Signs Temp Pulse Resp BP Pulse Ox 36.9 C 67 18 112/87 H 95 05/24/18 15:57 05/24/18 15:57 05/24/18 15:57 05/24/18 15:57 05/24/18 15:57 05/23/18 05/24/18 05/25/18 05:59 05:59 05:59 Intake Total 3100 Output Total 500 Balance 2600 PT 14.1 SEC (12.0-15.0) 05/24/18 13:00 INR 1.07 (0.83-1.16) 05/24/18 13:00 - Physical Exam Constitutional: no apparent distress Eyes: PERRL Ears, Nose, Mouth, Throat: dry mucous membranes Cardiovascular: regular rate and rhythym, no murmur, rub, or gallop, No edema Respiratory: no respiratory distress, reduced air movement Gastrointestinal: normoactive bowel sounds, soft, non-tender abdomen, No walls' s sign, No guarding, No rebound, No distension Skin: warm Neurologic: AAOx3 Psychiatric: interacting appropriately, not anxious, not encephalopathic Lymph, Heme, Immunologic: No petechiae ICD10 Worksheet Patient Problems: Problems Problem Status Onset Sepsis Acute Urinary tract infection Acute Weakness Acute Contusion of right hip Acute Dehydration Acute Rhabdomyolysis Acute
[2018-05-24] MEDS: HEPARIN 5,000 UNIT/0.5 ML INJ SC SCH (22:18)
[2018-05-25] MEDS: diphenhydrAMINE 25 MG CAP PO PRN ×2 (00:08→22:02)
[2018-05-25] MEDS: HEPARIN 5,000 UNIT/0.5 ML INJ SC SCH (05:28)
[2018-05-25 05:38] LABS: PLATELET COUNT 173 10^3/uL (150-400)
[2018-05-25 07:35] LABS: CREATINE KINASE 5330 IU/L (0-224)
[2018-05-25] MEDS ORDERED: MIRTAZAPINE 15 MG TAB PO SCH (09:00)
[2018-05-25] MEDS: FLUTICASONE NASAL 120 SPRAYS/16 GM MDI EACHNARE SCH (09:24)
[2018-05-25] MEDS: NS 1,000 ML IV SCH ×2 (10:47→20:58)
[2018-05-25] MEDS: ENOXAPARIN 40 MG/0.4 ML SYR SC SCH (13:13)
--- NOTE | 2018-05-25 16:28 | HOSPPROG ---
Hospitalist Progress Note Assessment/Plan: 77 year old male with neurogenic bladder, blindness, HTN admitted after a fall with rhabdo, and uti. rhabdomyolysis- patient was done for a period of time. unsure how long, but CK elevated on admission to over 11k, with hydration overnight down to 5k. had susy initially but now resolved. Will continue fluids and repeat renal function and CK in am SUSY on CKD- presumed to be due to prerenal azotemia, and rhabdo. resolved with fluids. Repeat renal function in am and IVF for rhabdo HTN- hold meds for now, resume as pressure rises CAD- on bj inhibitor, statin, resume on discharge UTI- initially had a leukocytosis of 18, and urine consistent with infection. urine culture grew out GNR. on rocephin. cont Suprapubic Catheter, chronic. functioning fine. monitor Generalized Weakness: Etiology is multifactorial. PT/OT to see. Currently not safe for d/c. May need SNF PPX- scds, start heparin Fluids- IVNS Lytes- WNL Nutrition- regular Cor- Full dispo- inpatient for rhabdo, UTI, weakness Objective: Vital Signs Temp Pulse Resp BP Pulse Ox 36.6 C 64 16 120/52 L 98 05/25/18 15:58 05/25/18 15:58 05/25/18 15:58 05/25/18 15:58 05/25/18 15:58 Laboratory Results 05/25/18 05:16 05/25/18 05:16 05/24/18 05/25/18 05/26/18 05:59 05:59 05:59 Intake Total 4200 Output Total 1325 600 Balance 2875 -600 PT 14.1 SEC (12.0-15.0) 05/24/18 13:00 INR 1.07 (0.83-1.16) 05/24/18 13:00 - Physical Exam Constitutional: no apparent distress, appears nourished, not in pain Eyes: PERRL, anicteric sclera, EOMI Ears, Nose, Mouth, Throat: moist mucous membranes, hearing normal, ears appear normal, no oral mucosal ulcers Cardiovascular: regular rate and rhythym, no murmur, rub, or gallop Respiratory: no respiratory distress, no rales or rhonchi, clear to auscultation Gastrointestinal: normoactive bowel sounds, soft, non-tender abdomen, no palpable masses Genitourinary: other (suprabpubic in place, appears to be draining, no erythema around stoma) Skin: no rashes or abrasions, no fluctuance, no induration Musculoskeletal: full muscle strength, no muscle tenderness, normal joint ROM Neurologic: AAOx3, sensation intact bilaterally Psychiatric: interacting appropriately, not anxious, not encephalopathic, thought process linear Lymph, Heme, Immunologic: no cervical LAD, no supraclavicular LAD ICD10 Worksheet Patient Problems: Problems Problem Status Onset Sepsis Acute Urinary tract infection Acute Weakness Acute Contusion of right hip Acute Dehydration Acute Rhabdomyolysis Acute
--- NOTE | 2018-05-25 17:44 | ASMTCMCOM ---
CM Note CM Note Notes: Pt admitted to hospital after 2 falls. He lives alone in [place] but does have 2 local dtrs. PT/OT recommending SNF, CM to f/u with pt and family for choice. DC Plan: SNF Date Signed: 05/25/2018 05:44 PM Electronically Signed By:Dilcia Gomez RN
[2018-05-25] MEDS: MIRTAZAPINE 15 MG TAB PO SCH (20:58)
[2018-05-26 05:54] LABS: PLATELET COUNT 173 10^3/uL (150-400)
[2018-05-26] MEDS: ENOXAPARIN 40 MG/0.4 ML SYR SC SCH (08:02)
[2018-05-26] MEDS: NS 1,000 ML IV SCH (08:02)
[2018-05-26] MEDS: FLUTICASONE NASAL 120 SPRAYS/16 GM MDI EACHNARE SCH (08:04)
--- NOTE | 2018-05-26 08:50 | PDMN ---
Medical Necessity Medical necessity: MCG: Musculoskeletal disease Rhabdo 3 days: 77 yr old male pt down after fall unknown amount of time, dehydration, UTI, diarrhea, SUSY , gen. weakness, PMHx blind, AMS, diarrhea X 2 weeks, back pain, HTN , CAD,. status changed to INPT 05/25 for ongoing med nec care > 2 MN- , further monitoring and tx of rhabdo, UTI, IVF, IV abx, PT,OT currently unsafe for DC
[2018-05-26 10:21] LABS: CREATINE KINASE 2174 IU/L (0-224)
[2018-05-26] MEDS: ACETAMINOPHEN 325 MG TAB PO PRN ×2 (12:04→22:06)
--- NOTE | 2018-05-26 14:13 | HOSPPROG ---
Hospitalist Progress Note Assessment/Plan: 77 year old male with neurogenic bladder, blindness, HTN admitted after a fall with rhabdo, and uti. rhabdomyolysis- On admission had CK over 11 but has trended down nicely and now at 2k. SUSY resolved. patient taking adequate PO to stay hydrated. SUSY on CKD- presumed to be due to prerenal azotemia, and rhabdo. resolved with fluids. Repeat renal function in am and IVF for rhabdo HTN- hold meds for now, resume as pressure rises CAD- on bj inhibitor, statin, resume on discharge UTI- initially had a leukocytosis of 18, and urine consistent with infection. urine culture grew out GNR. on rocephin today is day #3. Suprapubic Catheter, chronic. functioning fine. 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 PPX- scds, start heparin Fluids- IVNS Lytes- WNL Nutrition- regular Cor- Full dispo- PT/OT recomends snf which patient is amenable to. [facility] has [facility] and because they are closed on weekends patient will likely go Sunday. Subjective: patient with no complaints. No fevers, chills, NV, Dysuria or other complaints. Objective: Vital Signs Temp Pulse Resp BP Pulse Ox 36.6 C 65 18 107/67 95 05/26/18 07:23 05/26/18 07:23 05/26/18 07:23 05/26/18 07:23 05/26/18 07:23 Laboratory Results 05/26/18 05:25 05/26/18 05:25 05/25/18 05/26/18 05/27/18 05:59 05:59 05:59 Intake Total 1995 Output Total 1600 Balance 395 PT 14.1 SEC (12.0-15.0) 05/24/18 13:00 INR 1.07 (0.83-1.16) 05/24/18 13:00 - Physical Exam Constitutional: no apparent distress, appears nourished, not in pain Eyes: other (paitnet blind, does not track. ) Ears, Nose, Mouth, Throat: moist mucous membranes, hearing normal, ears appear normal, no oral mucosal ulcers Cardiovascular: regular rate and rhythym, no murmur, rub, or gallop Respiratory: no respiratory distress, no rales or rhonchi, clear to auscultation Gastrointestinal: normoactive bowel sounds, soft, non-tender abdomen, no palpable masses Genitourinary: other (suprapubic in place, draining properly) Skin: no rashes or abrasions, no fluctuance, no induration Neurologic: AAOx3, sensation intact bilaterally Psychiatric: interacting appropriately, not anxious, not encephalopathic, thought process linear Lymph, Heme, Immunologic: no cervical LAD, no supraclavicular LAD ICD10 Worksheet Patient Problems: Problems Problem Status Onset Sepsis Acute Urinary tract infection Acute Weakness Acute Contusion of right hip Acute Dehydration Acute Rhabdomyolysis Acute
[2018-05-26] MEDS: MIRTAZAPINE 15 MG TAB PO SCH (21:57)
[2018-05-27] MEDS: diphenhydrAMINE 25 MG CAP PO PRN (00:51)
[2018-05-27 07:33] VITALS: BP 132/86
[2018-05-27] MEDS: ENOXAPARIN 40 MG/0.4 ML SYR SC SCH (09:50)
[2018-05-27] MEDS: FLUTICASONE NASAL 120 SPRAYS/16 GM MDI EACHNARE SCH (09:50)
--- NOTE | 2018-05-27 09:53 | HOSPPROG ---
Hospitalist Progress Note Assessment/Plan: 77 year old male with neurogenic bladder, blindness, HTN admitted after a fall with rhabdo, and uti. rhabdomyolysis- On admission had CK over 11 but has trended down nicely and now at 2k. dc IVF no need to further follow CK SUSY on CKD- presumed to be due to prerenal azotemia, resolved w IVF HTN- hold meds for now, resume as pressure rises bp rising CAD- on bj inhibitor, statin, resume on discharge UTI- initially had a leukocytosis of 18, and urine consistent with infection. urine culture grew out morganella and enterococcus he has improved on ceftriaxone alone, which does not cover enterococcus. 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 functioning fine. 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 PPX- scds, start heparin Fluids- IVNS Lytes- WNL Nutrition- regular Cor- Full dispo- PT/OT recomends snf which patient is amenable to. CM investigating Subjective: feels considerably better. diarrhea decreasing Objective: Vital Signs Temp Pulse Resp BP Pulse Ox 36.3 C 74 16 132/86 H 95 05/27/18 07:31 05/27/18 07:31 05/27/18 07:31 05/27/18 07:31 05/27/18 07:31 Microbiology 05/27/18 01:24 Gastrointestinal Tract Panel (PCR) - Final Stool No Organism Detected By Pcr Laboratory Results 05/26/18 05:25 05/26/18 05:25 05/26/18 05/27/18 05/28/18 05:59 05:59 05:59 Intake Total 1994 300 Output Total 1600 1475 1999 Balance 395 -1175 -2000 PT 14.1 SEC (12.0-15.0) 05/24/18 13:00 INR 1.07 (0.83-1.16) 05/24/18 13:00 - Physical Exam Constitutional: no apparent distress, appears nourished Eyes: No icteric sclera, No pale conjunctiva Ears, Nose, Mouth, Throat: moist mucous membranes, hearing normal Cardiovascular: regular rate and rhythym, no murmur, rub, or gallop, No tachycardia Respiratory: no respiratory distress, no rales or rhonchi Gastrointestinal: normoactive bowel sounds, soft, non-tender abdomen Genitourinary: koch in urethra, other (clear urine) Skin: warm, normal color Musculoskeletal: No full muscle strength Neurologic: AAOx3 ICD10 Worksheet Patient Problems: Problems Problem Status Onset Sepsis Acute Urinary tract infection Acute Weakness Acute Contusion of right hip Acute Dehydration Acute Rhabdomyolysis Acute
--- NOTE | 2018-05-27 14:20 | ASMTCMCOM ---
CM Note CM Note Notes: CM met with patient and daughter Mana (RN). We discussed SNF placement, Mana states she met with [facility] this morning & is the preferred facility. Mana shares the family hopes the patient can do a few weeks of rehab at [facility] and transition to her sister Myrna's home where they would like [facility]. They are also open to [facility]. Mana can be reached at [phone], Myrna can be reached at [phone], they will both be working tomorrow. CM has sent referrals to [facility] and [facility] & is pending response. CM to follow. Current Discharge Plan: SNF, pending accepting facility, likely 05/26/18. Date Signed: 05/26/2018 01:25 PM Electronically Signed By:Nelia Fraser
--- NOTE | 2018-05-27 14:24 | ASMTCMCOM ---
CM Note CM Note Notes: CM spoke to pts daughter Monserrat. CM notified Monserrat that [facility] is out of network w/ pts insurance. [facility] has a contract w/ [employer]. Monserrat would like [facility] to start getting auth. Updates sent to [facility]. Monserrat's phone number is [phone]. CM to follow. Plan: [facility] Date Signed: 05/27/2018 02:10 PM Electronically Signed By:NARA Jenkins
--- NOTE | 2018-05-27 15:10 | PDIAF ---
- Diagnosis Diagnosis: falls Code Status: Full Code - Medication Management Discharge Medications: electronically signed and located in the Home Medication List. - Orders Services needed: Registered Nurse, Certified Outside Food Server, Physical Therapy, Occupational Therapy - Follow Up Care Current Providers and Referrals: Winston Silverio MD [Primary Care Provider] - As per Instructions
--- NOTE | 2018-05-27 15:35 | ASMTDCNOTE ---
Case Management Discharge Discharge Order Complete? Answers: Yes Patient to Obtain Answers: Other Notes: [facility] SNF Medications Transport will Pick (Date 05/27/2018 04:00 PM & Time) EMTALA Complete Answers: No Case Management Transport Answers: No Form Complete Faxed Final Orders Answers: Yes Agency/Facility Transfer Answers: Yes Report Printed & Faxed to Receiving Agency Family Notified Answers: Yes Discharge Comments Notes: Pts case discussed w/ [facility] Cifuentes and Dr. Roberto. CM spoke to pts daughter Mana. Mana has chosen [facility]. CM informed Mana that [facility] is not a preferred provider and pt will have a copay. Yobani from [facility] has gotten auth. DC orders sent. Vane will call to give report. CM available for changes. Plan: [facility] Date Signed: 05/27/2018 03:34 PM Electronically Signed By:NARA Jenkins
--- NOTE | 2018-05-27 15:36 | ASMTLACE ---
LACE Length of stay for Answers: 3 days current admission Acuity / Level of Answers: Yes Care: Did the patient have an inpatient admission? Comorbidities - select Answers: Mild liver or renal all that apply disease # of Emergency department Answers: 1-2 visits in the last 6 months Score: 9 Date Signed: 05/27/2018 03:35 PM Electronically Signed By:NARA Jenkins
--- NOTE | 2018-06-20 15:13 | GDS ---
DISCHARGE DIAGNOSES: 1. Rhabdomyolysis. 2. Fall. 3. Acute kidney injury. 4. Urinary tract infection with Morganella. 5. History of suprapubic catheter, status post change. 6. Generalized weakness. Please see admission history and physical by Luz Walton NP. The patient presented with fall, we akness, acute kidney injury. He was hydrated. He had imaging revealing no cervical spine or head in jury. The patient's CK trended down. Urine culture grew out Morganella and Enterococcus. He was tr eated with ceftriaxone with improvement, so was felt that the enterococcus was likely a colonization. The patient's [place] [address] to 2000. His creatinine went from 1.6 to 0.9. He was discharged to SNF. /[id number]/MODL
--- NOTE | 2018-06-25 12:35 | PQFORM ---
PHYSICIAN QUERY FORM Needs Your Response This query form is being sent to you to assure this patient record is coded properly. Please respond to the question below: GROCERY BUYER QUESTION: Dr. Roberto, Review of the medical record reveals this patient has an indwelling suprapubic catheter, and a urinary tract infection. Is the UTI due to the indwelling cystostomy catheter? Yes X No Other Clinically Undetermined Many thanks, VIC Vázquez [facility]/Coding Department W: [phone] INSTRUCTIONS FOR RESPONSE: Answer question by clicking on the "Edit Document" button. Move cursor to area below the stars. When complete, hit "Save." Click on the "Sign" button, then click "Sign" again. Type in your PIN and hit "Enter." MTDD
== END 2018-05-27 16:06 | DRG 699 ==
LOC: EDUNIT# → F3E 15:41 → OBSVTOIN 05-25 16:29
PROVIDERS: ADMIT Family Medicine; ATTEND Internal Medicine
DX: T83.510A Infection and inflammatory reaction due to cystostomy catheter, initial encounter (principal); N39.0 Urinary tract infection, site not specified; M47.16 Other spondylosis with myelopathy, lumbar region; N31.9 Neuromuscular dysfunction of bladder, unspecified; N17.9 Acute kidney failure, unspecified; N18.3 Chronic kidney disease, stage 3 (moderate); M62.82 Rhabdomyolysis; R53.1 Weakness; I12.9 Hypertensive chronic kidney disease with stage 1 through stage 4 chronic kidney disease, or unspecified chronic kidney disease; H54.8 Legal blindness, as defined in USA; E78.00 Pure hypercholesterolemia, unspecified; N40.0 Benign prostatic hyperplasia without lower urinary tract symptoms
CPT/HCPCS: 92523-GN; 97110-GP; 97116-GP; 97162-GP; 97166-GO; 97530-GP; 97535-GO; G0378; G8978-GP-CK; G8979-GP-CJ; G8987-GO-CL; G8988-GO-CI; J0696; J1644; J1650

== ENCOUNTER → 2018-07-02 | Outpatient (CLI) | payer OTHER | PROVIDERS: ATTEND Internal Medicine Geriatric Medicine | DX: R13.12 Dysphagia, oropharyngeal phase (principal); K21.9 Gastro-esophageal reflux disease without esophagitis; H54.8 Legal blindness, as defined in USA; Z87.01 Personal history of pneumonia (recurrent) | CPT/HCPCS: 92611-GN ==

== ENCOUNTER → 2018-07-24 | Day surgery (SDC) | payer OTHER ==
[~2018-07-24] MED LIST changes: +IOPAMIDOL (ISOVUE-M 300) 15 ML VIAL ONE; +TRIAMCINOLONE ACETONIDE 200 MG/5 ML MDV IM ONE; -VANCOMYCIN 1.5 GM in D5W 250 ML IV ONE; -VANCOMYCIN PHARMACY TO DOSE MISC ONE
== END | disposition home or self-care (01) ==
LOC: FIMAGING 13:22
PROVIDERS: ATTEND Physical Medicine & Rehabilitation
DX: M54.16 Radiculopathy, lumbar region (principal)
CPT/HCPCS: J3301; Q9967

== ENCOUNTER 2018-07-28 16:12 | Emergency (ER) | payer OTHER ==
--- NOTE | 2018-07-28 16:38 | EDPHY ---
HPI/HX/ROS/PE/MDM Narrative: CHIEF COMPLAINT: HPI: This patient is a 77 year old male who is blind with past medical history including hypertension, hyperlipidemia, CAD, BPH. He has a suprapubic catheter placed. The patient was diagnosed with a bladder infection on 05/24 after being evaluated for a fall. He has history of aspiration pneumonia and recurrent UTIs in the past without many symptoms or complaints, and does not generally develop fevers. For the past three days, the patient's daughter has noted him to have increased confusion, weakness, and imbalance, and reports he has seemed "pink" in the face. Today, due to worsening symptoms, they went to urgent care and had a UA positive for nitrates and leuk esterase. They were then referred here to the ED. The patient's daughter has noted cloudy, malodorous urine. They deny any recent falls. No fever, nausea, vomiting, abdominal pain, or other associated symptoms. REVIEW OF SYSTEMS: A comprehensive 10 system review of systems is otherwise negative aside from elements mentioned in the history of present illness and medical decision making. PMH: Blind, hearing loss. Hypertension, hyperlipidemia, coronary artery disease , BPH s/p GreenLight procedure, suprapubic catheter placed. SOCIAL HISTORY: Daughter at bedside. Retired. Lives in [place]. PHYSICAL EXAM: General:Patient is alert, in no acute distress. ENT:Patient is blind. ENT inspection normal. Neck: Normal inspection. Full range of motion. Respiratory:No respiratory distress. Breath sounds normal bilaterally. Cardiovascular: Regular rate and rhythm. Strong peripheral pulses. Normal cap refill. Abdomen: Suprapubic catheter in place. The abdomen is nontender to palpation. There are no peritoneal signs. There are normal bowel sounds. Back: Normal to inspection. No tenderness to palpation. Skin: Normal color. No rash. Warm and dry. Extremities: Normal appearance. Full range of motion. Neuro: Oriented x3. Normal motor function. Normal sensory function. ED Course: 77 y/o male presents for further evaluation after diagnosis of UTI at urgent care earlier today. He has a suprapubic catheter and recurrent UTIs, and his daughter at beside states they prefer outpatient treatment with antibiotics if appropriate. Plan for labs including CBC, chemistries, UA with culture. Plan for chest x-ray, as patient's daughter states he has had similar symptoms in the past with silent pneumonia. Chest x-ray is negative for acute processes, no pneumonia. Reviewed laboratory studies. UA positive for UTI, culture pending. Labs otherwise largely unremarkable. 17:30 Reassessed. Discussed laboratory and imaging results. Plan to discharge home in good condition as patient and his family prefer. Administered 1g IV ceftriaxone. Prescription for Cipro provided. Follow up and return precautions discussed. The patient and his family are comfortable with this plan. MDM: This is an elderly patient with numerous co-morbidities, here for possible UTI and some mild confusion. He has an indwelling SP catheter, which can sometimes cause false positive results on a urine dip, but I reviewed his current UA and previous, and this does seem significantly positive. I also reviewed his most recent cultures, which indicated M.M resistant to numerous antibiotics. Therefore we will treat him with IV ceftriaxone here and start on levaquin. I offered patient and family admission to the hospital but they definitely want to try to take patient home this evening. We discussed strict return precautions. - Data Points Imaging Results: Imaging Impressions Chest X-Ray 07/28/18 16:41 Impression: Stable negative chest. Imaging: I viewed and interpreted images myself Laboratory Results: Laboratory Results 07/28/18 17:03 07/28/18 17:03 07/28/18 07/28/18 07/28/18 17:03 17:03 16:35 WBC 10.98 10^3/uL H 10^3/uL (3.80-9.50) RBC 4.78 10^6/uL 10^6/uL (4.40-6.38) Hgb 15.8 g/dL g/dL (13.7-17.5) Hct 46.1 % % (40.0-51.0) MCV 96.4 fL fL (81.5-99.8) MCH 33.1 pg pg (27.9-34.1) MCHC 34.3 g/dL g/dL (32.4-36.7) RDW 14.3 % % (11.5-15.2) Plt Count 240 10^3/uL 10^3/uL (150-400) MPV 10.1 fL fL (8.7-11.7) Neut % (Auto) 82.2 % H % (39.3-74.2) Lymph % (Auto) 6.3 % L % (15.0-45.0) [place] % (Auto) 10.7 % % (4.5-13.0) Eos % (Auto) 0.1 % L % (0.6-7.6) Baso % (Auto) 0.1 % L % (0.3-1.7) Nucleat RBC Rel Count 0.0 % % (0.0-0.2) Absolute Neuts (auto) 9.03 10^3/uL H 10^3/uL (1.70-6.50) Absolute Lymphs (auto) 0.69 10^3/uL L 10^3/uL (1.00-3.00) Absolute Monos (auto) 1.17 10^3/uL H 10^3/uL (0.30-0.80) Absolute Eos (auto) 0.01 10^3/uL L 10^3/uL (0.03-0.40) Absolute Basos (auto) 0.01 10^3/uL L 10^3/uL (0.02-0.10) Absolute Nucleated RBC 0.00 10^3/uL 10^3/uL (0-0.01) Immature Gran % 0.6 % % (0.0-1.1) Immature Gran # 0.07 10^3/uL 10^3/uL (0.00-0.10) Sodium 137 mEq/L mEq/L (135-145) Potassium 4.4 mEq/L mEq/L (3.5-5.2) Chloride 108 mEq/L mEq/L (97-110) Carbon Dioxide 21 mEq/l L mEq/l (22-31) Anion Gap 8 mEq/L mEq/L (6-14) BUN 34 mg/dL H mg/dL (7-23) Creatinine 1.1 mg/dL mg/dL (0.7-1.3) Estimated GFR > 60 Glucose 113 mg/dL H mg/dL (70-100) Calcium 9.8 mg/dL mg/dL (8.5-10.4) Urine Color YELLOW Urine Appearance HAZY Urine pH 5.0 (5.0-7.5) Ur Specific [place] 1.010 (1.002-1.030) Urine Protein NEGATIVE (NEGATIVE) Urine Ketones NEGATIVE (NEGATIVE) Urine Blood NEGATIVE (NEGATIVE) Urine Nitrate POSITIVE H (NEGATIVE) Urine Bilirubin NEGATIVE (NEGATIVE) Urine Urobilinogen NEGATIVE EU EU (0.2-1.0) Ur Leukocyte Esterase 3+ H (NEGATIVE) Urine RBC NONE SEEN /hpf /hpf (0-3) Urine WBC 25-50 /hpf H /hpf (0-3) Ur Epithelial Cells NONE SEEN /lpf /lpf (NONE-1+) Urine Bacteria TRACE /hpf H /hpf (NONE SEEN) Urine Glucose NEGATIVE (NEGATIVE) Medications Given: Discontinued Medications Ceftriaxone Sodium/Dextrose (Rocephin 1 Gm (Premix)) 50 mls @ 100 mls/hr IV EDNOW ONE PRN Reason: Protocol Stop: 07/28/18 17:59 Last Admin: 07/28/18 17:36 Dose: 50 mls General Time Seen by Provider: 07/28/18 16:30 Initial Vital Signs: Initial Vital Signs Temperature (C) 36.3 C 07/28/18 16:18 Heart Rate 68 07/28/18 16:18 Respiratory Rate 16 07/28/18 16:18 Blood Pressure 128/73 H 07/28/18 16:18 O2 Sat (%) 95 07/28/18 16:18 O2 Delivery Mode Room Air Allergies/Adverse Reactions: No Known Allergies Allergy (Verified 07/28/18 16:17) Home Medications: Medication Instructions Recorded Ascorbic Acid [Vitamin C 500 mg 500 mg PO DAILY 05/24/18 (*)] Lovastatin 20 mg PO HS 05/24/18 MIRTAZAPINE [Remeron 7.5 mg] 7.5 mg PO HS 05/24/18 Melatonin PO HS 07/18/18 Meloxicam PO DAILY 07/18/18 Omeprazole PO BID 07/18/18 Ranitidine HCl 300 mg PO BID 07/18/18 Tylenol 500 mg PO BID PRN 07/18/18 Vitamin D3 PO HS 07/18/18 Ciprofloxacin [Cipro] 500 mg PO BID #14 tab 07/28/18 Departure - Departure Disposition: Home, Routine, Self-Care Clinical Impression: Urinary tract infection Qualifiers: Urinary tract infection type: acute cystitis Hematuria presence: without hematuria Qualified Code(s): N30.00 - Acute cystitis without hematuria Condition: Good Instructions: Urinary Tract Infection in Men (ED), How to Care for Your Suprapubic Catheter (ED), Urinary Tract Infection in Older Adults (ED) Additional Instructions: Take your antibiotics as prescribed. It is important to finish your entire course of antibiotics. Follow-up with your primary doctor within 72 hours. Return to the Emergency Department for fever, worsening pain, flank pain or failure to improve within 72 hours. You may also return for admission as we discussed; we would be happy to reevaluate you and observe you in the hospital at any time. It is possible that the bacteria causing your infection is resistant to the antibiotic we've placed you on. We have sent a urine for culture, if this comes back with a resistant bacteria, we will call you at the number you provided to us. Referrals: Mariposa Moreno MD [Medical Doctor] - As per Instructions Prescriptions: Ciprofloxacin [Cipro] 500 mg PO BID #14 tab Report Scribed for: Leonidas Ferraro Report Scribed by: Janice Moctezuma Date of Report: 07/28/18 Time of Report: 19:10 Physician Review and Approval Statement: Portions of this note were transcribed by an ED scribe. I personally performed the history, physical exam, and medical decision making; and confirm the accuracy of the information in the transcribed note.
[2018-07-28 17:12] LABS: PLATELET COUNT 240 10^3/uL (150-400)
[2018-07-28 18:30] VITALS: BP 134/77
== END 2018-07-28 18:29 | disposition home or self-care (01) ==
DX: N30.00 Acute cystitis without hematuria (principal); I10 Essential (primary) hypertension; E78.5 Hyperlipidemia, unspecified; I25.10 Atherosclerotic heart disease of native coronary artery without angina pectoris; N40.0 Benign prostatic hyperplasia without lower urinary tract symptoms
CPT/HCPCS: 71046; 96365; 99284; J0696